=== PATIENT | male | born 1940 | race Caucasian/White ===

== ENCOUNTER 2019-12-12 12:05 | Emergency (ER) | payer MEDICARE, OTHER, SELFPAY ==
[2019-12-12] VITALS (14 sets, daily range): BP systolic 85–141; BP diastolic 51–91; PULSE 78–96; RESP 16–29; TEMP 36.3; O2SAT 96–99; BMI 24.9
--- NOTE | 2019-12-12 12:29 | DI.RAD.S_ITS ---
PROCEDURE: XR CHEST 1V INDICATIONS: TIA, trauma TECHNIQUE: One view of the chest was acquired. COMPARISON: None. FINDINGS: Surgical changes and devices: A thoracolumbar stimulator is partially seen. Lungs and pleura: Low lung volumes are noted. This causes a crowded appearance to the lung markings and limits evaluation. Mild interstitial prominence is seen within the right lung. No large pneumothorax or large pleural effusions are seen. Mediastinum: The cardiac contours are within normal limits. The aorta demonstrates calcification and tortuosity. Bones and chest wall: Age-appropriate bony degenerative changes are seen. No suspicious bony lesions. Overlying soft tissues appear unremarkable. IMPRESSION: Mild interstitial prominence is seen within the right lung. Differential diagnosis includes artifact and mild pulmonary edema. A thoracolumbar stimulator is partially seen. Dictated by: Karel Vergara M.D. on 12/12/2019 at 11:46 Approved by: Karel Vergara M.D. on 12/12/2019 at 11:47
--- NOTE | 2019-12-12 12:29 | DI.CT.S_ITS ---
PROCEDURE: CT CERVICAL SPINE WO CON INDICATIONS: TIA, trauma TECHNIQUE: Noncontrast 3 mm thick sections acquired from the skull base to the T4 level. Sagittal and coronal reformats were then constructed. For radiation dose reduction, the following was used: automated exposure control, adjustment of mA and/or kV according to patient size. COMPARISON: [facility], CR, XR CHEST 1V, 12/12/2019, 12:24. [facility], CT, CT HEAD/BRAIN WO CON, 12/12/2019, 12:28. FINDINGS: Image quality: Excellent. Bones: No fractures or dislocations. Visualized superior ribs are intact. Degenerative changes are seen. There is at least moderate disc space narrowing seen at C5-C6 and moderate to severe disc space narrowing at C6-C7. Posteriorly directed endplate osteophytes are seen at this these levels. Bridging anterior osteophytes are seen at least C5 through C7. There is moderate disc space narrowing seen at the C2-C3 level. Milder degenerative changes are seen elsewhere. Soft tissues: There is a small right-sided pleural effusion partially seen. Subpleural fibrotic changes are seen, which are more prominent on the right side than on the left. The aortic arch is abnormally prominent, measuring 4.6 cm proximally. The thyroid gland is small in size. Prevertebral soft tissues are normal in thickness. No paravertebral hematomas. No apical pneumothoraces. IMPRESSION: No acute fractures are seen. Lower cervical spine degenerative changes are seen. Small right-sided pleural effusion. Thoracic aortic aneurysm partially seen. Pulmonary fibrotic changes are seen. Dictated by: Karel Vergara M.D. on 12/12/2019 at 12:05 Approved by: Karel Vergara M.D. on 12/12/2019 at 12:08
--- NOTE | 2019-12-12 12:29 | DI.CT.S_ITS ---
PROCEDURE: CT HEAD/BRAIN WO CON INDICATIONS: TIA, trauma TECHNIQUE: Noncontrast 4.5 mm thick angled axial sections acquired from the foramen magnum to the vertex, with coronal and sagittal reformats. For radiation dose reduction, the following was used: automated exposure control, adjustment of mA and/or kV according to patient size. COMPARISON: [facility], CR, XR CHEST 1V, 12/12/2019, 12:24. [facility], CT, CT CERVICAL SPINE WO CON, 12/12/2019, 12:28. FINDINGS: Image quality: Excellent. CSF spaces: Basal cisterns are patent. No extra-axial fluid collections. The ventricles are symmetric in size and shape. Brain: No intracranial bleeds or masses. There is cerebral volume loss for age, with resultant ventricular and sulcal prominence. There are periventricular and deep white matter chronic small vessel ischemic changes. There is intracranial internal carotid artery atherosclerosis. Skull and face: Postoperative change with metallic devices can be seen along the inferior aspects of the middle cranial fossa on both sides. Calvarium and visualized facial bones appear intact, without suspicious lesions. Sinuses: Visualized sinuses and mastoids are clear. IMPRESSION: No acute intracranial process is seen. No acute intracranial hemorrhage is seen. Postoperative change can be seen, with metallic devices along the inferior aspects of the middle cranial fossa on both sides. Note is made of age-appropriate brain parenchymal volume loss and chronic small vessel ischemic changes. Dictated by: Karel Vergara M.D. on 12/12/2019 at 12:03 Approved by: Karel Vergara M.D. on 12/12/2019 at 12:05
--- NOTE | 2019-12-12 12:33 | ED_ITS ---
HPI - General Adult General Chief complaint: Trauma Stated complaint: Fall, dizziness Time Seen by Provider: 12/12/19 12:05 History of Present Illness HPI narrative: 79-year-old gentleman with extensive medical history with majority of care at [facility] brought into the emergency room after a reported syncopal episode, hitting his head and is on Eliquis. He has a history of dizzy spells that 1st began in June of 2019 he describes a significant brightness and then finds himself waking up. The 1st time was in a restaurant is 2nd time he was able to get to a bed and laid down before he actually passed out 3rd time was today. All episodes were following 3-4 days of diarrhea. He has chronic diarrhea from his medications and typically uses Imodium to help control those symptoms. His event today was preceded by a shower feeling well standing in the bathroom had the bright sensation again was taking steps to get to a chair to sit down when he woke up on the bathroom floor. He has an abrasion over the right eyebrow and clearly hit his head. He describes no postictal.. Did not bite his tongue there is no loss of bowel or bladder. His and her caregiver were im mediately available in the describe no seizure-like activity. Complaints at this time include an abrasion over the right lateral elbow and scrape along the lateral edge of the right foot. Complains of no headache, he has chronic cervical spine injuries. Related Data Allergies Allergy/AdvReac Type Severity Reaction Status Date / Time Penicillins Allergy Verified 12/12/19 14:12 Review of Systems Review of Systems Narrative: Pertinent positive and negative findings as per HPI Remainder of review of systems is otherwise unremarkable for Constitutional: Fevers, chills, ENT: No sore throat, neck pain, ear pain CV: Chest pain, palpitations, dyspnea on exertion Respiratory: Cough, wheeze, dyspnea GI: Nausea, vomiting, : Dysuria, hematuria, flank pain Psych: Depression, anxiety, suicidal ideation Patient History Medical History (Updated 12/12/19 @ 16:23 by Ellen Rodriguez MD) ASCVD (arteriosclerotic cardiovascular disease) (Acute) Chronic anticoagulation (Acute) Chronic kidney disease (Acute) History of ventricular tachycardia (Acute) Hyperlipidemia (Acute) Left leg weakness (Acute) Paroxysmal atrial fibrillation (Acute) Pituitary adenoma (Acute) Polymyalgia rheumatica (Acute) PSVT (paroxysmal supraventricular tachycardia) (Acute) Pulmonary fibrosis (Acute) Surgical History (Updated 12/12/19 @ 12:37 by Ellen Rodriguez MD) Status post appendectomy (Acute) Status post evacuation of subdural hematoma (Acute) Social History (Updated 12/12/19 @ 12:37 by Ellen Rodriguez MD) additional social history: Main home is in [place], 2nd home in [place]. Usual care is at [facility] ([place], [place]) in [place] Exam Narrative Exam Narrative: General: Healthy appearing, in no acute distress. Minor abrasion above right eyebrow. Alert appropriate and able to give specific and detailed complex medical history HEENT: Moist mucous membranes, normal sclera with reactive pupils, Neck: No JVD, chronic neck pain and mild occipital insertion tenderness Respiratory: Lungs with scattered crackles throughout all lung morales without significant wheeze and no rhonchi. Full and symmetrical air movement Cardiac: Regular rate and rhythm no murmurs no bruits Abdomen: Soft nontender good bowel tones, no flank pain Skin: Warm and dry, multiple bruises and thin skin, skin tear over they right elbow and minor abrasion over the lateral right foot that is exquisitely tender to the lightest touch. Neurologic: Grossly neurologically intact with no obvious asymmetries or abnormalities Extremities: Right foot is examined there is no bony tenderness around the ankle to heal joint any of the metatarsals or with manipulation of the 4th or 5th small toes. He has a superficial not even through the complete epidermis abrasion that causes him severe pain with the slightest touch of any kind Psych: Cooperative, appropriate insight and affect Initial Vital Signs Initial Vital Signs: Vital Signs Temperature 97.3 F L 12/12/19 12:21 Pulse Rate 83 12/12/19 12:21 Respiratory Rate 16 12/12/19 12:21 Blood Pressure 101/66 12/12/19 12:21 Pulse Oximetry 97 12/12/19 12:21 Procedures Orthopedic Splinting/Casting Avulsion fracture right ankle: Side: right Lower Extremity Injury Location: ankle Lower Extremity Immobilizer: boot orthosis Other Orthopedic Equipment: walker Post splinting neuro exam: intact Post splinting vascular exam: intact Placed by: Nursing Course Orders Ordered: ED Orders 12/12/19 12:21 Complete Blood Count AUTO DIFF Stat Comprehensive Metabolic Panel Stat Magnesium Stat Procalcitonin Stat Troponin I Stat 12/12/19 12:29 CT cervical spine wo con Stat CT head/brain wo con Stat XR chest 1V Stat 12/12/19 12:30 Urinalysis and Microscopic Stat EKG-12 Lead Stat 12/12/19 15:15 XR foot RT min 3V Stat Discontinued Medications Bacitracin (Bacitracin) 1 applic TOP NOW ONE Stop: 12/12/19 13:45 Last Admin: 12/12/19 14:13 Dose: 1 applic Documented by: HAROON Vital Signs Vital signs: Vital Signs - 8 hr 12/12/19 12:21 12/12/19 12:51 12/12/19 12:53 Temperature 97.3 F L Pulse Rate 83 83 85 Respiratory Rate 16 16 18 Blood Pressure 101/66 99/58 L Pulse Oximetry 97 97 97 12/12/19 13:00 12/12/19 13:30 12/12/19 13:31 Temperature Pulse Rate 83 96 H 90 Respiratory Rate 17 29 H 20 Blood Pressure 99/51 L 85/63 L Pulse Oximetry 96 98 97 12/12/19 13:40 12/12/19 14:00 12/12/19 14:01 Temperature Pulse Rate 80 80 84 Respiratory Rate 21 19 21 Blood Pressure 97/78 141/75 H Pulse Oximetry 97 99 99 12/12/19 14:30 12/12/19 15:00 12/12/19 15:30 Temperature Pulse Rate 78 84 79 Respiratory Rate 16 16 19 Blood Pressure 111/69 119/91 H 116/72 Pulse Oximetry 97 98 97 12/12/19 16:00 12/12/19 16:30 Temperature Pulse Rate 81 88 Respiratory Rate 20 23 Blood Pressure 114/66 Pulse Oximetry 97 Medical Decision Making Medical Records Medical records reviewed: Yes I reviewed the patient's medical records. Lab Data Lab results reviewed: Yes I reviewed the patient's lab results. Result diagrams: 12/12/19 12:21 12/12/19 12:21 Labs: Lab Results 12/12/19 12/12/19 12/12/19 Range/Units 12:21 12:21 12:21 WBC 10.2 (4.5-11.0) X10^3/uL RBC 3.99 L (4.5-5.9) X10^6/uL Hgb 12.6 L (13.5-17.5) g/dL Hct 39.5 L (41-53) % MCV 98.8 (80-100) fL MCH 31.7 (26-34) PG MCHC 32.0 (30-36) % RDW 17.3 H (11.6-14.8) % Plt Count 267 (150-400) X10^3/uL Neut % (Auto) 67.3 (50-75) % Lymph % (Auto) 22.2 L (25-40) % Alfalfa % (Auto) 7.7 (3-14) % Eos % (Auto) 2.2 (2-4) % Baso % (Auto) 0.6 (0-2) % Neut # (Auto) 6900 (0894-8215) /uL Lymph # (Auto) 2300 (4659-7910) /uL Alfalfa # (Auto) 800 (0-900) /uL Eos # (Auto) 200 (0-450) /uL Baso # (Auto) 100 (0-100) /uL Sodium 136 L (137-145) mmol/L Potassium 4.0 (3.4-5.1) mmol/L Chloride 107 (98-107) mmol/L Carbon Dioxide 23 (22-32) mmol/L BUN 20 (9-20) mg/dL Creatinine 1.77 H (0.66-1.25) mg/dL Estimated GFR 37.1 L (>60) mL/min BUN/Creatinine Ratio 11.3 (6-22) Glucose 157 H (80-110) mg/dL Calcium 8.4 (8.4-10.2) mg/dL Magnesium 1.7 (1.6-2.3) mg/dL Total Bilirubin 0.6 (0.2-1.3) mg/dL AST 60 H (17-59) IU/L ALT 29 (<50) IU/L Alkaline Phosphatase 142 H (38-126) U/L Troponin I 0.016 (0.01-0.034) ng/mL Total Protein 6.3 (6.3-8.2) g/dL Albumin 3.0 L (3.5-5.0) g/dL Globulin 3.3 (1.7-4.1) g/dL Albumin/Globulin Ratio 0.9 L (1.0-2.8) Procalcitonin 0.07 (<0.5) ng/mL Imaging Data CT scan - head: Radiologist's Impression: FINDINGS: Image quality: Excellent. CSF spaces: Basal cisterns are patent. No extra-axial fluid collections. The ventricles are symmetric in size and shape. Brain: No intracranial bleeds or masses. There is cerebral volume loss for age, with resultant ventricular and sulcal prominence. There are periventricular and deep white matter chronic small vessel ischemic changes. There is intracranial internal carotid artery atherosclerosis. Skull and face: Postoperative change with metallic devices can be seen along the inferior aspects of the middle cranial fossa on both sides. Calvarium and visualized facial bones appear intact, without suspicious lesions. Sinuses: Visualized sinuses and mastoids are clear. IMPRESSION: No acute intracranial process is seen. No acute intracranial hemorrhage is seen. Postoperative change can be seen, with metallic devices along the inferior aspects of the middle cranial fossa on both sides. Note is made of age-appropriate brain parenchymal volume loss and chronic small vessel ischemic changes. Dictated by: Karel Vergara M.D. on 12/12/2019 at 12:03 Chest x-ray: Radiologist's Impression: FINDINGS: Surgical changes and devices: A thoracolumbar stimulator is partially seen. Lungs and pleura: Low lung volumes are noted. This causes a crowded appearance to the lung markings and limits evaluation. Mild interstitial prominence is seen within the right lung. No large pneumothorax or large pleural effusions are seen. Mediastinum: The cardiac contours are within normal limits. The aorta demonstrates calcification and tortuosity. Bones and chest wall: Age-appropriate bony degenerative changes are seen. No suspicious bony lesions. Overlying soft tissues appear unremarkable. IMPRESSION: Mild interstitial prominence is seen within the right lung. Differential diagnosis includes artifact and mild pulmonary edema. A thoracolumbar stimulator is partially seen. Dictated by: Karel Vergara M.D. on 12/12/2019 at 11:46 CT - cervical spine: Radiologist's Impression: FINDINGS: Image quality: Excellent. Bones: No fractures or dislocations. Visualized superior ribs are intact. Degenerative changes are seen. There is at least moderate disc space narrowing seen at C5-C6 and moderate to severe disc space narrowing at C6-C7. Posteriorly directed endplate osteophytes are seen at this these levels. Bridging anterior osteophytes are seen at least C5 through C7. There is moderate disc space narrowing seen at the C2-C3 level. Milder degenerative changes are seen elsewhere. Soft tissues: There is a small right-sided pleural effusion partially seen. Subpleural fibrotic changes are seen, which are more prominent on the right side than on the left. The aortic arch is abnormally prominent, measuring 4.6 cm proximally. The thyroid gland is small in size. Prevertebral soft tissues are normal in thickness. No paravertebral hematomas. No apical pneumothoraces. IMPRESSION: No acute fractures are seen. Lower cervical spine degenerative changes are seen. Small right-sided pleural effusion. Thoracic aortic aneurysm partially seen. Pulmonary fibrotic changes are seen. Dictated by: Karel Vergara M.D. on 12/12/2019 at 12:05 X-ray right foot: Radiologist's Impression: FINDINGS: Bones: Minimally displaced avulsion fracture involving the lateral malleolus No acute fractures or dislocations. No suspicious bony lesions. First through 5th hammertoe deformities. Soft tissues: No tibiotalar joint effusion. Achilles tendon appears normal. IMPRESSION: No acute fracture. No acute osseous lesion. If symptoms and/or clinical suspicion for pathology persists, further assessment with repeat radiographs (7- 10 days) or advanced imaging (e.g. CT, MRI or bone scan) may be helpful. Dictated by: Megan Ordaz MD, PhD on 12/12/2019 at 15:43 ECG Data Attestation: I personally reviewed and interpreted this ECG as follows: Interpretation: Rate of 83 Junctional rhythm verses retrograde conduction with PVCs no acute ischemia No priors are available for comparison MDM Narrative Medical decision making narrative: 79-year-old gentleman with a history of syncope that very likely is vasovagal syncope. Similar episode this morning after having diarrhea for the last 3-4 days. No evidence of cardiac event or pulmonary embolism. There is no intracranial hemorrhage in he did not suffer any cervical fractures. Small skin tear to the right elbow is dressed. He continues to complain of exquisite pain over the lateral portion of his foot on the right soon x-ray was done and reveals an avulsion fracture of the lateral malleolus. He is placed in a walking boot for stabilization. He is able to get up and walk about the department without dizziness. He will be discharged home and will ask him to follow-up with his primary care physician later this week. Discharge Plan Departure Patient Disposition: Home Clinical Impression: Orthostatic syncope Skin tear of elbow without complication Qualifiers: Encounter type: initial encounter Laterality: right Qualified Code(s): S51.011A - Laceration without foreign body of right elbow, initial encounter Avulsion fracture of lateral malleolus Qualifiers: Encounter type: initial encounter Fracture type: closed Laterality: right Qu alified Code(s): S82.61XA - Displaced fracture of lateral malleolus of right fibula, initial encounter for closed fracture Instructions: DI for Syncope in Adults (Fainting), DI for Ankle Fracture Activity Restrictions/Additional Instructions: Thank you for coming in today. Your workup was quite reassuring. I did not find any evidence of bleeding in your head, stroke, infection, heart attack, broken neck or other life- threatening issues that may have caused the episode today. I think that your slightly dehydrated and blood pressure got too low and you passed out. The skin tear on your right elbow has a dressing in place, please leave that in place as long as it stays on. If that area seems to be getting infected with increasing redness, pain or drainage you do need to see a physician. The exquisite pain you are experiencing on the edge of your foot is actually a small avulsion fracture at your ankle. The tendon that attaches to the bottom of the ankle bone on the outside tore off just a tiny bit of bone. This will heal nicely but you will be more comfortable if your ankle is stabilized. I have given you boot that you can walk with that I think will be easier for you to manage than a splint or a cast would be. Please follow-up with our orthopedic physician Dr. Avila within the next week for further evaluation of the avulsion fracture of the ankle. You also need to follow-up with your primary care and cardiology physicians regarding this recurrent syncope. I hope you heal quickly.. Referrals: Adriana Hull MD [Physician] -
[2019-12-12 12:36] LABS: Add Manual Diff / Slide Review NO; Basophils Absolute Auto 100 /uL (0-100); Basophils Percent Auto 0.6 % (0-2); Eosinophils Absolute Auto 200 /uL (0-450); Eosinophils Percent Auto 2.2 % (2-4); Hematocrit 39.5 % (41-53); Hemoglobin 12.6 g/dL (13.5-17.5); Lymphocytes Absolute Auto 2300 /uL (1100-4500); Lymphocytes Percent Auto 22.2 % (25-40); Mean Corpuscular Hemoglobin 31.7 PG (26-34); Mean Corpuscular Volume 98.8 fL (80-100); Monocytes Absolute Auto 800 /uL (0-900); Monocytes Percent Auto 7.7 % (3-14); Neutrophils Absolute Auto 6900 /uL (1500-7000); Neutrophils Percent Auto 67.3 % (50-75); Platelet Count 267 X10^3/uL (150-400); Red Blood Cell Count 3.99 X10^6/uL (4.5-5.9); Red Cell Distribution Width 17.3 % (11.6-14.8); White Blood Cell Count 10.2 X10^3/uL (4.5-11.0)
[2019-12-12 12:52] LABS: Alanine Aminotransferase 29 IU/L (<50); Albumin Globulin Ratio 0.9 (1.0-2.8); Alkaline Phosphatase 142 U/L (38-126); Aspartate Aminotransferase 60 IU/L (17-59); BUN Creatinine Ratio 11.3 (6-22); Bilirubin Total 0.6 mg/dL (0.2-1.3); Blood Urea Nitrogen 20 mg/dL (9-20); Calcium 8.4 mg/dL (8.4-10.2); Carbon Dioxide 23 mmol/L (22-32); Chloride 107 mmol/L (98-107); Estimated Glomerular Filt Rate 37.1 mL/min (>60); Globulin 3.3 g/dL (1.7-4.1); Glucose 157 mg/dL (80-110); HEMOLYSIS 18 (0-50); Magnesium 1.7 mg/dL (1.6-2.3); Sodium 136 mmol/L (137-145); Total Protein 6.3 g/dL (6.3-8.2)
[2019-12-12 13:03] LABS: Troponin I 0.016 ng/mL (0.01-0.034)
[2019-12-12 13:19] LABS: Procalcitonin 0.07 ng/mL (<0.5)
[2019-12-12] MEDS: BACITRACIN OINT 0.9 GM PCKT 1 APPLIC TOP (14:13)
--- NOTE | 2019-12-12 15:15 | DI.RAD.S_ITS ---
PROCEDURE: XR FOOT RT MIN 3V INDICATIONS: pain laterall, trauma TECHNIQUE: 3 views of the foot were acquired. COMPARISON: None. FINDINGS: Bones: Minimally displaced avulsion fracture involving the lateral malleolus No acute fractures or dislocations. No suspicious bony lesions. First through 5th hammertoe deformities. Soft tissues: No tibiotalar joint effusion. Achilles tendon appears normal. IMPRESSION: No acute fracture. No acute osseous lesion. If symptoms and/or clinical suspicion for pathology persists, further assessment with repeat radiographs (7-10 days) or advanced imaging (e.g. CT, MRI or bone scan) may be helpful. Dictated by: Megan Ordaz MD, PhD on 12/12/2019 at 15:43 Approved by: Megan Ordaz MD, PhD on 12/12/2019 at 15:45
--- NOTE | 2019-12-12 17:15 | PC.NURSE ---
md wanted ortho boot. pt felt unsteady and wanted to go home and put his sandal on his other foot to ambulate. walker at home.
== END 2019-12-12 17:12 | disposition home or self-care (01) ==
PROVIDERS: Emergency Provider Emergency Medicine
DX: I95.1 Orthostatic hypotension (principal); S51.011A Laceration without foreign body of right elbow, initial encounter; S82.61XA Displaced fracture of lateral malleolus of right fibula, initial encounter for closed fracture; W19.XXXA Unspecified fall, initial encounter
CPT/HCPCS: 36415; 70450; 71045; 72125; 73630; 80053; 83735; 84145; 84484; 85025; 93005; 99284

== ENCOUNTER 2019-12-15 10:09 | Emergency (ER) | payer MEDICARE, OTHER, SELFPAY ==
[2019-12-15] VITALS (17 sets, daily range): BP systolic 98–120; BP diastolic 56–73; PULSE 74–97; RESP 12–28; TEMP 36.5–36.8; O2SAT 96–98; BMI 33.4
[2019-12-15 10:27] LABS: Add Manual Diff / Slide Review NO; Basophils Absolute Auto 100 /uL (0-100); Basophils Percent Auto 0.5 % (0-2); Eosinophils Absolute Auto 300 /uL (0-450); Eosinophils Percent Auto 3.2 % (2-4); Hematocrit 37.6 % (41-53); Lymphocytes Absolute Auto 3500 /uL (1100-4500); Lymphocytes Percent Auto 34.6 % (25-40); Mean Corpuscular HGB Conc 32.1 % (30-36); Mean Corpuscular Hemoglobin 31.5 PG (26-34); Mean Corpuscular Volume 98.4 fL (80-100); Monocytes Absolute Auto 1000 /uL (0-900); Monocytes Percent Auto 9.5 % (3-14); Neutrophils Absolute Auto 5400 /uL (1500-7000); Neutrophils Percent Auto 52.2 % (50-75); Platelet Count 271 X10^3/uL (150-400); Red Blood Cell Count 3.82 X10^6/uL (4.5-5.9); Red Cell Distribution Width 17.3 % (11.6-14.8); White Blood Cell Count 10.2 X10^3/uL (4.5-11.0)
--- NOTE | 2019-12-15 10:27 | DI.CT.S_ITS ---
PROCEDURE: CT HEAD/BRAIN WO CON INDICATIONS: lightheaded on eliquis TECHNIQUE: Noncontrast 4.5 mm thick angled axial sections acquired from the foramen magnum to the vertex, with coronal and sagittal reformats. For radiation dose reduction, the following was used: automated exposure control, adjustment of mA and/or kV according to patient size. COMPARISON: [facility], CT, CT HEAD/BRAIN WO CON, 12/12/2019, 12:28. FINDINGS: Image quality: Excellent. CSF spaces: Basal cisterns are patent. No extra-axial fluid collections. The ventricles are symmetric in size and shape. Brain: No intracranial bleeds or masses involving the cerebrum or cerebellum but at the pituitary fossa the soft tissue present is unusually prominent, measuring up to 1.8 cm transverse, and 2.1 cm craniocaudad. What appears to be the upper margin of the pituitary gland impinges on the undersurface of the optic nerves through this area.. There is cerebral volume loss for age, with resultant ventricular and sulcal prominence. There are periventricular and deep white matter chronic small vessel ischemic changes. There also is encephalomalacia stable in appearance over time at the inferior aspect of the medial left frontal lobe, perhaps related to old trauma. There is intracranial internal carotid artery atherosclerosis. Skull and face: Calvarium and visualized facial bones appear intact, without suspicious lesions. At the inner table of the calvarium bilaterally thin metallic radiodensities are present, longer on the right than the left, etiology uncertain. Sinuses: Visualized sinuses and mastoids are clear. 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 Faintly visualized metallic radiodensities along the inner table of the calvarium seen bilaterally as was previously the case 12/12/19. Some form of operative intervention in this area appears to have occurred. Contrast-enhanced MR scanning for accurate assessment of possible pituitary mass likely is warranted unless this abnormality have thus been previously documented elsewhere. Dictated by: Arpit Bo M.D. on 12/15/2019 at 10:39 Approved by: Arpit Bo M.D. on 12/15/2019 at 10:44
[2019-12-15 10:31] LABS: Alanine Aminotransferase 24 IU/L (<50); Albumin 2.9 g/dL (3.5-5.0); Albumin Globulin Ratio 0.9 (1.0-2.8); Alkaline Phosphatase 141 U/L (38-126); Aspartate Aminotransferase 40 IU/L (17-59); BUN Creatinine Ratio 12.2 (6-22); Bilirubin Total 0.6 mg/dL (0.2-1.3); Blood Urea Nitrogen 20 mg/dL (9-20); Calcium 8.4 mg/dL (8.4-10.2); Carbon Dioxide 24 mmol/L (22-32); Chloride 104 mmol/L (98-107); Creatine Kinase 96 U/L (55-170); Estimated Glomerular Filt Rate 40.5 mL/min (>60); Globulin 3.2 g/dL (1.7-4.1); Glucose 147 mg/dL (80-110); HEMOLYSIS < 15 (0-50); Potassium 4.2 mmol/L (3.4-5.1); Sodium 135 mmol/L (137-145); Total Protein 6.1 g/dL (6.3-8.2)
--- NOTE | 2019-12-15 10:35 | ED_ITS ---
HPI - Dizziness General Chief Complaint: Syncope Stated Complaint: Dizziness Time Seen by Provider: 12/15/19 10:12 Source: patient and EMS Mode of arrival: EMS Limitations: no limitations History of Present Illness HPI Narrative: Patient is a 79-year-old male who presents after a near syncopal episode. He said he was in his living room sitting down in a wheelchair with a blanket over him when he saw white spots felt extremely lightheaded. He did not pass out. His blood pressure for EMS he had a systolic in the 80s initially which improved with IV fluid. He now is overall feeling much better. He was seen evaluated here 2 days ago for similar episode at which time he actually did fall and pass out. He is on Eliquis for atrial fibrillation. Related Data Home Medications Medication Instructions Recorded Confirmed Ofev See Rx Instructions .ROUTE .COMPLEX 12/15/19 12/15/19 allopurinol 300 mg PO DAILY 12/15/19 12/15/19 amiodarone See Rx Instructions .ROUTE .COMPLEX 12/15/19 12/15/19 apixaban [Eliquis] 2.5 mg PO BID 12/15/19 12/15/19 atorvastatin 40 mg PO DAILY 12/15/19 12/15/19 levetiracetam 500 mg PO BID 12/15/19 12/15/19 Allergies Allergy/AdvReac Type Severity Reaction Status Date / Time Penicillins Allergy Verified 12/15/19 10:19 Review of Systems Review of Systems ROS Unobtainable: All systems reviewed & are unremarkable except as noted in HPI and below Constitutional Constitutional: Denies chills, Denies fever(s), Denies lethargy and Denies weakness Eyes Eyes: Reports as per HPI, Denies change in vision, Denies eye discharge, Denies irritation and Denies loss of vision ENT Ears, Nose, Mouth, and Throat: Denies change in voice, Denies neck pain and Denies sore throat Cardiovascular Cardiovascular: Reports as per HPI, Reports lightheadedness, Denies dyspnea and Denies dyspnea on exertion Respiratory Respiratory: Denies cough, Denies dyspnea, Denies dyspnea on exertion and Denies wheezing Gastrointestinal Gastrointestinal: Denies abdominal pain, Denies change in bowel habits, Denies diarrhea, Denies nausea and Denies vomiting Musculoskeletal Musculoskeletal: Denies neck pain Integumentary/Breasts Skin/Breast: Denies pruritus, Denies erythema, Denies rash and Denies wounds Neurologic Neurologic: Denies loss of vision and Denies weakness Allergic/Immunologic Allergic/Immunologic: Denies wheezing Patient History Medical History ASCVD (arteriosclerotic cardiovascular disease) (Acute) Chronic anticoagulation (Acute) Chronic kidney disease (Acute) History of ventricular tachycardia (Acute) Hyperlipidemia (Acute) Left leg weakness (Acute) Paroxysmal atrial fibrillation (Acute) Pituitary adenoma (Acute) Polymyalgia rheumatica (Acute) PSVT (paroxysmal supraventricular tachycardia) (Acute) Pulmonary fibrosis (Acute) Surgical History Status post appendectomy (Acute) Status post evacuation of subdural hematoma (Acute) Social History Smoking Status: Former smoker additional social history: Main home is in [place], 2nd home in [place]. Usual care is at [facility] in [place] Smoking Status: Former smoker Substance Use Type: does not use Exam Initial Vital Signs Initial Vital Signs: Vital Signs Temperature 97.7 F 12/15/19 10:08 Pulse Rate 79 12/15/19 10:08 Respiratory Rate 18 12/15/19 10:08 Blood Pressure 107/56 L 12/15/19 10:08 Pulse Oximetry 98 12/15/19 10:08 GENERAL: Pleasant alert elderly male and in no acute distress. HEENT: Head atraumatic,EOMI, pupils reactive, face symmetric, moist mucous membranes CARDIOVASCULAR: Regular rate and rhythm without murmurs, rubs or gallops. RESPIRATORY: Breath sounds equal bilaterally, no wheezes rales or rhonchi. ABDOMEN: Soft, nontender. Normoactive bowel sounds all 4 quadrants. No guarding or rebound. EXTREMITIES: Normal range of motion, no clubbing or edema. Neurovascularly intact NEUROLOGICAL: Alert and oriented x4.Normal gait and speech. Cranial nerves II through XII grossly intact. Clinical Haematologist strength equal bilaterally SKIN: Skin tear noted on right elbow with Steri-Strips no sign of infection Course Orders Ordered: ED Orders 12/15/19 10:14 Complete Blood Count AUTO DIFF Stat Comprehensive Metabolic Panel Stat Troponin & CK Cardiac Panel Stat 12/15/19 10:17 EKG-12 Lead Stat 12/15/19 10:27 CT head/brain wo con Stat Discontinued Medications Sodium Chloride (Normal Saline 0.9%) 1,000 mls @ 150 mls/hr IV CONT ULISSES Last Infusion: 12/15/19 12:24 Dose: 0 mls/hr Documented by: Infusion: 12/15/19 12:20 Dose: 0 mls/hr Documented by: Admin: 12/15/19 10:53 Dose: 150 mls/hr Documented by: JULIET Vital Signs Vital signs: Vital Signs - 8 hr 12/15/19 10:08 12/15/19 10:29 12/15/19 10:30 Temperature 97.7 F Pulse Rate 79 80 80 Pulse Rate [Orthostatic Lying] Pulse Rate [Orthostatic Sitting] Pulse Rate [Orthostatic Standing] Respiratory Rate 18 15 13 Blood Pressure 107/56 L Blood Pressure [Orthostatic Lying] Blood Pressure [Orthostatic Sitting] Blood Pressure [Orthostatic Standing] Pulse Oximetry 98 98 98 12/15/19 10:45 12/15/19 10:55 12/15/19 11:00 Temperature Pulse Rate 82 80 80 Pulse Rate [Orthostatic Lying] Pulse Rate [Orthostatic Sitting] Pulse Rate [Orthostatic Standing] Respiratory Rate 12 21 15 Blood Pressure 98/63 Blood Pressure [Orthostatic Lying] Blood Pressure [Orthostatic Sitting] Blood Pressure [Orthostatic Standing] Pulse Oximetry 96 96 96 12/15/19 11:15 12/15/19 11:22 12/15/19 11:24 Temperature Pulse Rate 80 82 90 Pulse Rate [Orthostatic Lying] Pulse Rate [Orthostatic Sitting] Pulse Rate [Orthostatic Standing] Respiratory Rate 14 18 24 Blood Pressure 110/66 103/56 L Blood Pressure [Orthostatic Lying] Blood Pressure [Orthostatic Sitting] Blood Pressure [Orthostatic Standing] Pulse Oximetry 97 96 98 12/15/19 11:25 12/15/19 11:28 12/15/19 11:30 Temperature Pulse Rate 97 H 82 Pulse Rate [Orthostatic Lying] 82 Pulse Rate [Orthostatic Sitting] 74 Pulse Rate [Orthostatic Standing] 81 Respiratory Rate 28 H Blood Pressure 103/67 Blood Pressure [Orthostatic Lying] 110/66 Blood Pressure [Orthostatic Sitting] 103/56 L Blood Pressure [Orthostatic Standing] 103/67 Pulse Oximetry 96 98 12/15/19 11:45 09/02/20 12:00 12/15/19 12:13 Temperature Pulse Rate 81 82 84 Pulse Rate [Orthostatic Lying] Pulse Rate [Orthostatic Sitting] Pulse Rate [Orthostatic Standing] Respiratory Rate 24 18 20 Blood Pressure 120/73 Blood Pressure [Orthostatic Lying] Blood Pressure [Orthostatic Sitting] Blood Pressure [Orthostatic Standing] Pulse Oximetry 98 97 97 12/15/19 12:15 12/15/19 12:22 Temperature 98.3 F Pulse Rate 83 Pulse Rate [Orthostatic Lying] Pulse Rate [Orthostatic Sitting] Pulse Rate [Orthostatic Standing] Respiratory Rate 12 Blood Pressure Blood Pressure [Orthostatic Lying] Blood Pressure [Orthostatic Sitting] Blood Pressure [Orthostatic Standing] Pulse Oximetry 97 MDM - Dizziness Lab Data Attestation: I reviewed the patient's lab results. Result diagrams: 12/15/19 10:14 12/15/19 10:14 Labs: Lab Results 12/15/19 12/15/19 Range/Units 10:14 10:14 WBC 10.2 (4.5-11.0) X10^3/uL RBC 3.82 L (4.5-5.9) X10^6/uL Hgb 12.0 L (13.5-17.5) g/dL Hct 37.6 L (41-53) % MCV 98.4 (80-100) fL MCH 31.5 (26-34) PG MCHC 32.1 (30-36) % RDW 17.3 H (11.6-14.8) % Plt Count 271 (150-400) X10^3/uL Neut % (Auto) 52.2 (50-75) % Lymph % (Auto) 34.6 (25-40) % Centre % (Auto) 9.5 (3-14) % Eos % (Auto) 3.2 (2-4) % Baso % (Auto) 0.5 (0-2) % Neut # (Auto) 5400 (0368-0968) /uL Lymph # (Auto) 3500 (5282-5738) /uL Centre # (Auto) 1000 H (0-900) /uL Eos # (Auto) 300 (0-450) /uL Baso # (Auto) 100 (0-100) /uL Sodium 135 L (137-145) mmol/L Potassium 4.2 (3.4-5.1) mmol/L Chloride 104 (98-107) mmol/L Carbon Dioxide 24 (22-32) mmol/L BUN 20 (9-20) mg/dL Creatinine 1.64 H (0.66-1.25) mg/dL Estimated GFR 40.5 L (>60) mL/min BUN/Creatinine Ratio 12.2 (6-22) Glucose 147 H (80-110) mg/dL Calcium 8.4 (8.4-10.2) mg/dL Total Bilirubin 0.6 (0.2-1.3) mg/dL AST 40 (17-59) IU/L ALT 24 (<50) IU/L Alkaline Phosphatase 141 H (38-126) U/L Total Creatine Kinase 96 (55-170) U/L CK-MB (CK-2) TNP CK-MB (CK-2) Rel Index TNP Troponin I 0.016 (0.01-0.034) ng/mL Total Protein 6.1 L (6.3-8.2) g/dL Albumin 2.9 L (3.5-5.0) g/dL Globulin 3.2 (1.7-4.1) g/dL Albumin/Globulin Ratio 0.9 L (1.0-2.8) ECG Data Attestation: I personally reviewed and interpreted this ECG as follows: Prior ECG tracings: available for review Interpretation: Junctional rate 79 with PVCs no P wave is noted similar to previous EKG which is under Javed Munson [facility] Narrative Medical decision making narrative: Patient is had 2nd recurrence of presyncopal episode this week. Unclear what is causing his episodes. Dr. Rivas in ED to see and evaluate patient. At this time he requests changing medication stopping Lasix and decreasing hydralazine to 25 mg 3 times a day. Patient will follow-up with his Cardiology in [place]. Patient states that he actually is not on any blood pressure medications he is only taking amiodarone. At this time there is no other medication that we can change. He agrees and would like to go home and follow-up with [place]. Patient has negative orthostatic. I do recommend that if it happens again he needs to return to the ED. Discharge Plan Departure Patient Disposition: Home Clinical Impression: Vasovagal syncope Discharge Date/Time: 12/15/19 12:58 Instructions: DI for Syncope in Adults (Fainting) Activity Restrictions/Additional Instructions: *You have been diagnosed with vasovagal syncope *What to do: Your syncopal or near syncopal episodes are likely due to your blo od pressure which may be related to the medications. Please see below for recommendation *Continue to take medications as directed Change Hydralazine from 50 mg 3 times a day to 25 mg 3 times a day Stop Lasix *Follow up with your primary care provider in 2-3 days call your middleware consultant today to schedule follow-up appointment *Return to ER if you should have recurrent syncopal episodes, lightheadedness vision changes week or any new, worsening or concerning symptoms Prescriptions: No Action atorvastatin 40 mg tablet 40 mg PO DAILY RF: 0 amiodarone 200 mg tablet See Rx Instructions .ROUTE .COMPLEX RF: 0 levetiracetam 500 mg tablet 500 mg PO BID RF: 0 allopurinol 300 mg tablet 300 mg PO DAILY RF: 0 Eliquis 2.5 mg tablet 2.5 mg PO BID RF: 0 Ofev See Rx Instructions .ROUTE .COMPLEX RF: 0
[2019-12-15 10:43] LABS: Troponin I 0.016 ng/mL (0.01-0.034)
[2019-12-15] MEDS: SODIUM CHLORIDE 0.9% 1,000 ML 150 ML IV (10:53)
--- NOTE | 2019-12-15 11:32 | PC.NURSE ---
EXTRUSION MANAGER: did not feel dizzy
--- NOTE | 2019-12-15 12:01 | PM.CN ---
History of Present Illness Consult details Date Patient Seen: 12/15/19 Time Patient Seen: 12:01 Chief complaint: Dizziness Reason for consult: hypotension, recurrent syncope Requesting provider: Marisa Dinero Narrative: Genaro Munson is an 79-year-old male with past medical history of CAD (s/p 3x stenting 11/2018), IPF on steroids, recent bilateral subdural hematomas status post cranial surgery in July 2019, paroxysmal atrial fibrillation, spinal cord stimulator who follows at [facility] with neruology, cardiology, and primary care who presented after an episode of dizziness and blurry vision that lasted for around 30 minutes. Patient was awake this morning in his wheel chair when he suddenly felt his vision brightening and became lightheaded. He was not doing anything at the time. He had a similar episode now 2 days ago where he did pass out in the bathroom. About a month ago it appears his hydralazine dose was increased from 25 to 50 mg. Patient called his who called EMS. With EMS his blood pressure was in the 80 systolic, he received IV fluids with improvements in symptoms and blood pressures. There were no noted arrhythmias. He currently denies any symptoms. In the emergency room, patient was borderline hypotensive with a normal heart rate. EKG showed an accelerated junctional rhythm with frequent PVCs, very similar to prior EKG. He was not hypoxic on room air. Laboratory evaluation shows a mild anemia with a hemoglobin of 12, similar to a few days ago. His creatinine is 1.64 which is somewhat improved from a few days ago at 1.77. It is unclear what his baseline creatinine is. Remainder of laboratory evaluation was unremarkable. Medicine was consulted for possible admission for recurrent syncope, however seem more likely due to hypotension which may be related to his increased dose of hydralazine. He improved after IV fluids and is currently asymptomatic. Orthostatics were negative in the emergency room. There is a low likelihood of being able to capture an event in the observation time frame, and Patient states he is able to call his swimming coach or instructor and possibly obtain a Holter monitor which I recommended. Meds Home Medications and Allergies Home Medications Medication Instructions Recorded Confirmed Type allopurinol 300 mg PO DAILY 12/15/19 12/15/19 History amiodarone 200 mg PO DAILY 12/15/19 12/15/19 History apixaban [Eliquis] 2.5 mg PO BID 12/15/19 12/15/19 History atorvastatin 40 mg PO DAILY 12/15/19 12/15/19 History furosemide 20 mg PO QAM 12/15/19 12/15/19 History gabapentin 100 mg PO TID 12/15/19 12/15/19 History hydralazine 50 mg PO BID 12/15/19 12/15/19 History isosorbide mononitrate 10 mg PO BID 12/15/19 12/15/19 History levetiracetam 500 mg PO BID 12/15/19 12/15/19 History metoprolol succinate 50 mg PO DAILY 12/15/19 12/15/19 History pantoprazole 40 mg PO DAILY 12/15/19 12/15/19 History Allergies Allergy/AdvReac Type Severity Reaction Status Date / Time Penicillins Allergy Verified 12/15/19 10:19 Review of Systems Review of Systems Narrative: All other systems reviewed with the patient and are negative unless otherwise stated. Exam Vital Signs (past 8 hours): - 12/15/19 10:08 12/15/19 10:29 12/15/19 10:30 Temperature 97.7 F Pulse Rate 79 80 80 Pulse Rate [Orthostatic Lying] Pulse Rate [Orthostatic Sitting] Pulse Rate [Orthostatic Standing] Respiratory Rate 18 15 13 Blood Pressure 107/56 L Blood Pressure [Orthostatic Lying] Blood Pressure [Orthostatic Sitting] Blood Pressure [Orthostatic Standing] Pulse Oximetry 98 98 98 12/15/19 10:45 12/15/19 10:55 12/15/19 11:00 Temperature Pulse Rate 82 80 80 Pulse Rate [Orthostatic Lying] Pulse Rate [Orthostatic Sitting] Pulse Rate [Orthostatic Standing] Respiratory Rate 12 21 15 Blood Pressure 98/63 Blood Pressure [Orthostatic Lying] Blood Pressure [Orthostatic Sitting] Blood Pressure [Orthostatic Standing] Pulse Oximetry 96 96 96 12/15/19 11:15 12/15/19 11:22 12/15/19 11:24 Temperature Pulse Rate 80 82 90 Pulse Rate [Orthostatic Lying] Pulse Rate [Orthostatic Sitting] Pulse Rate [Orthostatic Standing] Respiratory Rate 14 18 24 Blood Pressure 110/66 103/56 L Blood Pressure [Orthostatic Lying] Blood Pressure [Orthostatic Sitting] Blood Pressure [Orthostatic Standing] Pulse Oximetry 97 96 98 12/15/19 11:25 12/15/19 11:28 12/15/19 11:30 Temperature Pulse Rate 97 H 82 Pulse Rate [Orthostatic Lying] 82 Pulse Rate [Orthostatic Sitting] 74 Pulse Rate [Orthostatic Standing] 81 Respiratory Rate 28 H Blood Pressure 103/67 Blood Pressure [Orthostatic Lying] 110/66 Blood Pressure [Orthostatic Sitting] 103/56 L Blood Pressure [Orthostatic Standing] 103/67 Pulse Oximetry 96 98 Oxygen Delivery Method Room Air Narrative Exam Narrative: GENERAL APPEARANCE: Well developed, well nourished, in no acute distress. Wrapped in blankets and lying quite still in stretcher. SKIN: Inspection of the skin reveals no rashes, ulcerations or petechiae. HEENT: Normocephalic atraumatic, extraocular muscles are intact, oropharynx is clear and mucous membranes are moist, neck is supple without adenopathy NECK: Supple and symmetric. There was no thyroid enlargement, and no tenderness, or masses were felt. CHEST: Normal AP diameter and normal contour without any kyphoscoliosis. LUNGS: Auscultation of the lungs revealed no wheezes, rhonchi, or rales. CARDIOVASCULAR: There was a regular rate and rhythm without any murmurs, gallops, rubs. Peripheral pulses were 2+ and symmetric. ABDOMEN: Soft and nontender with normal bowel sounds. No ascites was noted. EXTREMITIES: No cyanosis, clubbing or edema. NEUROLOGIC: Alert and oriented. Normal affect. Objective Labs Result Diagrams: 12/15/19 10:14 12/15/19 10:14 Labs: Laboratory Results - last 24 hr 12/15/19 12/15/19 10:14 10:14 WBC 10.2 RBC 3.82 L Hgb 12.0 L Hct 37.6 L MCV 98.4 MCH 31.5 MCHC 32.1 RDW 17.3 H Plt Count 271 Neut % (Auto) 52.2 Lymph % (Auto) 34.6 Yell % (Auto) 9.5 Eos % (Auto) 3.2 Baso % (Auto) 0.5 Neut # (Auto) 5400 Lymph # (Auto) 3500 Yell # (Auto) 1000 H Eos # (Auto) 300 Baso # (Auto) 100 Sodium 135 L Potassium 4.2 Chloride 104 Carbon Dioxide 24 BUN 20 Creatinine 1.64 H Estimated GFR 40.5 L BUN/Creatinine Ratio 12.2 Glucose 147 H Calcium 8.4 Total Bilirubin 0.6 AST 40 ALT 24 Alkaline Phosphatase 141 H Total Creatine Kinase 96 CK-MB (CK-2) TNP CK-MB (CK-2) Rel Index TNP Troponin I 0.016 Total Protein 6.1 L Albumin 2.9 L Globulin 3.2 Albumin/Globulin Ratio 0.9 L Assessment & Plan Assessment & Plan narrative: Genaro Munson is an 79-year-old male with past medical history of CAD (s/p 3x stenting 11/2018), IPF on steroids, recent bilateral subdural hematomas status post cranial surgery in July 2019, paroxysmal atrial fibrillation, spinal cord stimulator who follows at [facility] with neruology, cardiology, and primary care who presented after an episode of dizziness and blurry vision that lasted for around 30 minutes. I a highly suspect his symptoms are related to a low blood pressure which has since resolved with IV fluids. There is a small possibility that this is related to a cardiogenic process, however given relatively infrequent episodes it is not likely that we will be able to observe an episode during an observation time frame. It appears as if his hydralazine was recently increased from 25-50 mg twice daily. I recommend that he reduce this dose back to 25 mg twice a day, and stop furosemide if he is still taking it. I advised the patient to discuss with his swimming coach or instructor for a possible Holter monitor, which he says he will do shortly after leaving.
--- NOTE | 2019-12-15 12:22 | PC.NURSE ---
Called pt's and pt's shaylee will be coming to [facility] pt.
== END 2019-12-15 12:58 | disposition home or self-care (01) ==
PROVIDERS: Emergency Provider Emergency Medicine
DX: R55 Syncope and collapse (principal); I95.9 Hypotension, unspecified; I48.91 Unspecified atrial fibrillation; Z79.01 Long term (current) use of anticoagulants
CPT/HCPCS: 70450; 80053; 82550; 84484; 85025; 93005; 96360; 99284

== ENCOUNTER → 2019-12-24 10:26 | Outpatient (CLI) | payer MEDICARE, OTHER, SELFPAY ==
--- NOTE | 2019-12-24 | DI.RAD.S_ITS ---
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 COMPARISON: [facility], CR, XR FOOT RT MIN 3V, 12/12/2019, 15:32. FINDINGS: Bones: No fractures or dislocations. There is potential lucency seen involving the 1st metatarsal head. Degenerative changes are seen throughout, which are most prominent involving the 1st ray. Soft tissues: No suspicious soft tissue densities. IMPRESSION: Potential lucency seen involving the 1st metatarsal head. Concern is raised for osteomyelitis in this patient with this given history. If there is strong suspicion for developing osteomyelitis, please consider a dedicated MRI without and with contrast for further evaluation (assuming that there is no contraindication to MRI). Dictated by: Karel Vergara M.D. on 12/24/2019 at 10:02 Approved by: Karel eVrgara M.D. on 12/24/2019 at 10:03
== END ==
PROVIDERS: Referring Provider Emergency Medicine Undersea and Hyperbaric Medicine; Visit Provider Emergency Medicine Undersea and Hyperbaric Medicine
DX: L97.522 Non-pressure chronic ulcer of other part of left foot with fat layer exposed (principal); R60.9 Edema, unspecified
CPT/HCPCS: 73660